=== PATIENT | female | born 1990 | race African-American/Black ===

== ENCOUNTER 2016-12-05 00:32 | Emergency (ER) | payer OTHER ==
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
[2016-12-05 01:18] VITALS: BP 135/83; PULSE 119; TEMP 97.9; BMI 41.8
[2016-12-05 01:31] LABS: BASOPHIL 0.2 % (0-2.0); EOSINOPHIL 1.9 % (0-4.5); MCH 29.3 pg (25.7-33.7); MCHC 33.3 g/dl (32.0-36.0); MEAN CELL VOLUME 87.9 fl (80-96); MEAN PLT VOLUME 11.5 fl (7.5-11.1); NEUTROPHILS 67.4 % (42.8-82.8); PLATELET COUNT 204 K/MM3 (134-434); RDW 13.9 % (11.6-15.6); WHITE BLOOD COUNT 7.9 K/mm3 (4.0-10.0)
[2016-12-05 01:36] LABS: URINE APPEARANCE CLEAR; URINE BILIRUBIN NEGATIVE (NEGATIVE); URINE BLOOD NEGATIVE (NEGATIVE); URINE COLOR YELLOW; URINE GLUCOSE (UA) NEGATIVE (NEGATIVE); URINE KETONE TRACE (NEGATIVE); URINE LEUK ESTERASE NEGATIVE (NEGATIVE); URINE NITRITE NEGATIVE (NEGATIVE); URINE UROBILINOGEN 2.0 E.U/dl E.U./dl (0.2-1.0)
[2016-12-05 01:38] LABS: URINE PROTEIN 3+ (NEGATIVE)
[2016-12-05 01:48] LABS: URINE BACTERIA RARE /hpf (NONE SEEN); URINE HYALINE CAST 1 /lpf; URINE MUCUS RARE; URINE RBC 2 /hpf (0-3); URINE WBC 4 /hpf (3-5)
[2016-12-05 02:22] LABS: ALBUMIN 3.6 g/dl (3.4-5.0); ANION GAP 10 (8-16); BILIRUBIN,TOTAL 0.1 mg/dL (0.2-1.0); CALCIUM 8.9 mg/dL (8.5-10.1); CO2 25 mmol/L (21-32); CREATININE 0.6 mg/dL (0.55-1.02); GLUCOSE,RANDOM 101 mg/dL (74-106); SGOT/AST 12 U/L (15-37); SGPT/ALT 22 U/L (12-78); TOT PROT 7.3 g/dl (6.4-8.2)
[2016-12-05 02:23] LABS: ALK PHOS 49 U/L (45-117)
== END 2016-12-05 02:52 | disposition home or self-care (01) ==
LOC: JER 00:32
DX: O99.89 Other specified diseases and conditions complicating pregnancy, childbirth and the puerperium (principal); Y04.2XXA Assault by strike against or bumped into by another person, initial encounter; Y93.89 Activity, other specified; Y92.89 Other specified places as the place of occurrence of the external cause; Y07.03 Male partner, perpetrator of maltreatment and neglect
CPT/HCPCS: 36415; 76801-TC; 80053; 81003; 81015; 84702; 85025; 86850; 86900; 86901; 99284-25

== ENCOUNTER 2017-01-07 15:04 | Emergency (ER) | payer OTHER ==
[2017-01-07 15:18] VITALS: BP 149/72; PULSE 80; TEMP 98.8; BMI 42.5
[2017-01-07] MEDS ORDERED: ALBUTEROL SO4 2.5/IPRATROPIUM 0.5 INH SOL 3 ML VIAL.NEB. NEB ONE (16:17)
--- NOTE | 2017-01-07 16:34 | PDOC ---
History of Present Illness - General Chief Complaint: Respiratory Stated Complaint: SOB Time Seen by Provider: 01/07/17 16:16 History Source: Patient Exam Limitations: No Limitations - History of Present Illness Initial Comments: 01/07/17 16:29 Patient 18 weeks with complaints of cold symptoms fevers, productive cough. 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 Has taken no medication as she was nervous to use any meds with the . has felt feverish but has taken no Tylenol. 01/07/17 18:21 Timing/Duration: reports: changing over time, getting worse Severity: reports: mild, moderate Associated Symptoms: reports: cough, nasal congestion, nasal drainage Past History - Travel Traveled outside of the country in the last 30 days: No Close contact w/someone who was outside of country & ill: No - Past Medical History Allergies/Adverse Reactions: Allergies Allergy/AdvReac Type Severity Reaction Status Date / Time No Known Drug Allergies Allergy Verified 01/07/17 15:18 Home Medications: Ambulatory Orders Pnv95/Iron Fum/Folic Acid [ Caplet] 1 each PO DAILY 05/22/16 Acetaminophen [Tylenol] 325 mg PO TID PRN #30 tablet MDD 4 12/08/16 Anemia: Yes Asthma: Yes Cancer: No Cardiac Disorders: No CVA: No COPD: No CHF: No Dementia: No Diabetes: Yes (pre-diabetes) GI Disorders: No Disorders: No HTN: No Hypercholesterolemia: No Liver Disease: No Psychiatric Problems: Yes (Depression) Seizures: No Thyroid Disease: No - Surgical History Abdominal Surgery: Yes (GASTRIC SLEEVE 2015) Appendectomy: No Cardiac Surgery: No Cholecystectomy: No Lung Surgery: No Neurologic Surgery: No Orthopedic Surgery: No - Reproductive History (#): 1 Para: 0 Therapeutic (s) & number: No - Immunization History Immunization Up to Date: Yes - Psycho/Social/Smoking Cessation Hx Anxiety: Yes Suicidal Ideation: No Smoking Status: No Smoking History: Never smoked Have you smoked in the past 12 months: No Number of Cigarettes Smoked Daily: 0 Hx Alcohol Use: No Drug/Substance Use Hx: No Substance Use Type: None Hx Substance Use Treatment: No Review of Systems - Review of Systems Able to Perform ROS?: Yes Is the patient limited Norwegian proficient: Yes Constitutional: Yes: Symptoms Reported, See HPI, Fever, Malaise HEENTM: Yes: Symptoms Reported, See HPI, Nose Congestion Respiratory: Yes: Symptoms reported, See HPI, Cough (moist ) Integumentary: Yes: Symptoms Reported Neurological: Yes: Symptoms reported, See HPI, Headache (frontal ) All Other Systems: Reviewed and Negative *Physical Exam - Vital Signs Last Vital Signs Temp Pulse Resp BP Pulse Ox 98.8 F 80 18 149/72 100 01/07/17 15:14 01/07/17 15:14 01/07/17 15:14 01/07/17 15:14 01/07/17 15:14 - Physical Exam General Appearance: Yes: Nourished, Appropriately Dressed, Apparent Distress, Mild Distress HEENT: positive: DREW, TMs Normal, Pharynx Normal Neck: positive: Supple. negative: Lymphadenopathy (R), Lymphadenopathy (L) Respiratory/Chest: positive: Normal Breath Sounds, Wheezing (faint expiratory wheezing noted in the upper lobes with a moist nonproductive cough). 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 some improvement with Neb but patient refuses meds as is and hopes to use conservative measures. *DC/Admit/Observation/Transfer Diagnosis at time of Disposition: Common cold virus - Discharge Dispostion Disposition: HOME Condition at time of disposition: Stable Admit: No - Referrals Referrals: Donnell Lou MD [Primary Care Provider] - - Patient Instructions Printed Discharge Instructions: DI for Common Cold Additional Instructions: Rest, drink lots of fluids: Teas, water, soups, Pedialyte Saltwater gargles Steamy showers/seem to face break up mucus Avoid contact with others until fevers and cough resolved Lots of handwashing and good hygiene Continue [id number] medications for symptomatic relief Tylenol for fever and pain Followup with private physician in one to 2 days as needed Return to emergency department for worsened symptoms, fevers, dehydration
== END 2017-01-07 17:51 | disposition home or self-care (01) ==
LOC: JERFT 15:04
DX: J06.9 Acute upper respiratory infection, unspecified (principal); B97.89 Other viral agents as the cause of diseases classified elsewhere
CPT/HCPCS: 87804; 99281-25

== ENCOUNTER → 2017-01-28 | Emergency (ER) | payer OTHER ==
[~2017-01-28] MED LIST: CEPHALEXIN MONOHYDRATE 500 MG CAPSULE (UD) ONE
[2017-01-28 04:23] VITALS: BMI 42.5
[2017-01-28 08:52] VITALS: BP 130/80; PULSE 98; TEMP 98.3
== END | disposition home or self-care (01) ==
LOC: JER 04:20
DX: O26.892 Other specified pregnancy related conditions, second trimester (principal); R10.30 Lower abdominal pain, unspecified; Z3A.21 21 weeks gestation of pregnancy
CPT/HCPCS: 76801-TC; 76817-TC; 99281-25

== ENCOUNTER 2017-02-10 11:18 | Emergency (ER) | payer OTHER ==
[2017-02-10 11:25] VITALS: BP 116/69; PULSE 114; TEMP 98.5; BMI 43.9
== END 2017-02-10 12:52 | disposition left against medical advice (07) ==
LOC: JERFT 11:18
DX: Z53.21 Procedure and treatment not carried out due to patient leaving prior to being seen by health care provider (principal)
CPT/HCPCS: 99281-25

== ENCOUNTER 2017-02-20 13:41 | Emergency (ER) | payer OTHER ==
[2017-02-20 13:51] VITALS: BP 142/76; PULSE 84; TEMP 97.9; BMI 43.0
[2017-02-20 15:00] LABS: URINE APPEARANCE CLEAR; URINE BILIRUBIN NEGATIVE (NEGATIVE); URINE BLOOD NEGATIVE (NEGATIVE); URINE COLOR DKYELLOW; URINE GLUCOSE (UA) NEGATIVE (NEGATIVE); URINE KETONE TRACE (NEGATIVE); URINE NITRITE NEGATIVE (NEGATIVE); URINE PROTEIN NEGATIVE (NEGATIVE); URINE UROBILINOGEN NEGATIVE E.U./dl (0.2-1.0)
[2017-02-20 15:01] LABS: URINE LEUK ESTERASE 2+ (NEGATIVE)
[2017-02-20 15:08] LABS: URINE BACTERIA RARE /hpf (NONE SEEN); URINE MUCUS MANY; URINE RBC 2 /hpf (0-3); URINE WBC 5 /hpf (3-5)
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
[2017-02-20] MEDS ORDERED: CEPHALEXIN MONOHYDRATE 500 MG CAPSULE (UD) PO ONE (15:46)
== END 2017-02-20 15:59 | disposition home or self-care (01) ==
LOC: JERFT 13:41
DX: N30.01 Acute cystitis with hematuria (principal)
CPT/HCPCS: 36415; 81003; 81015; 84703; 87086; 87491; 87591; 99281-25

== ENCOUNTER 2017-04-01 19:53 | Emergency (ER) | payer OTHER ==
[2017-04-01 20:14] VITALS: BP 137/76; PULSE 77; TEMP 99.2; BMI 42.5
--- NOTE | 2017-04-01 21:17 | PDOC ---
History of Present Illness - General Chief Complaint: Vaginal Sxs Stated Complaint: HEAD ACHE/ABDOMINAL PAIN Time Seen by Provider: 04/01/17 20:23 History Source: Patient Exam Limitations: No Limitations - History of Present Illness Travel History: No Initial Comments: 04/01/17 21:41 26-year-old female with a history of asthma and prediabetes presents to the emergency department complaining of 1)sore throat 8 hours; patient denies difficulty swallowing 2) mild diarrhea with BRBPR since yesterday but noticed his stool forming today 3) 2/10 frontal band-like nonradiating intermittent headache without photophobia /phonophobia, dizziness, lightheadedness LMP: 03/09/2017 : x6 months ago/ had a cerclage. She says her baby x1d after delivery Approximately one week after normal spontaneous vaginal delivery, patient had a UTI and was given Keflex 500 mg twice a day 7 days. Subsequently, she had a yeast infection and was treated by Diflucan. One week later, she was treated with amoxicillin 875 twice a day for right hand infection. 7 days ago, patient had BV and was treated with metronidazole. This patient presents today with multiple complaints. Patient denies any dizziness, lightheadedness, nausea/vomiting, fever/chills, jaw pain, neck pains, back pains, chest pain, shortness of breath, urinary symptoms: Frequency/urgency/hesitancy, hematuria, and pains, [place] numbness or tingling sensation. Timing/Duration: reports: intermittent Quality: reports: mild Past History - Past Medical History Allergies/Adverse Reactions: Allergies Allergy/AdvReac Type Severity Reaction Status Date / Time No Known Drug Allergies Allergy Verified 04/01/17 20:08 Home Medications: Ambulatory Orders Pnv95/Iron Fum/Folic Acid [ Caplet] 1 each PO DAILY 05/22/16 Acetaminophen [Tylenol] 325 mg PO TID PRN #30 tablet MDD 4 12/08/16 Cephalexin Monohydrate [Keflex -] 500 mg PO Q8H #21 capsule 02/20/17 Anemia: Yes Asthma: Yes Cancer: No Cardiac Disorders: No CVA: No COPD: No CHF: No Dementia: No Diabetes: Yes (pre-diabetes) GI Disorders: No Disorders: No HTN: No Hypercholesterolemia: No Liver Disease: No Psychiatric Problems: Yes (Depression) Seizures: No Thyroid Disease: No - Surgical History Abdominal Surgery: Yes (GASTRIC SLEEVE 2013) Appendectomy: No Cardiac Surgery: No Cholecystectomy: No Lung Surgery: No Neurologic Surgery: No Orthopedic Surgery: No - Reproductive History (#): 1 Para: 0 Therapeutic (s) & number: No - Immunization History Immunization Up to Date: Yes - Psycho/Social/Smoking Cessation Hx Anxiety: No Suicidal Ideation: No Smoking Status: No Smoking History: Never smoked Have you smoked in the past 12 months: No Number of Cigarettes Smoked Daily: 0 Information on smoking cessation initiated: No Hx Alcohol Use: No Drug/Substance Use Hx: No Substance Use Type: None Hx Substance Use Treatment: No Review of Systems - Review of Systems Able to Perform ROS?: Yes Comments:: 04/01/17 21:46 CONSTITUTIONAL: Absent: fever, chills, diaphoresis, generalized weakness, malaise, loss of appetite HEENT: Absent: rhinorrhea, nasal congestion, throat pain, throat swelling, difficulty swallowing, mouth swelling, ear pain, eye pain, visual Changes CARDIOVASCULAR: Absent: chest pain, loss of consciousness, palpitations, irregular heart rate, peripheral edema RESPIRATORY: Absent: cough, shortness of breath, dyspnea with exertion, orthopnea, wheezing, stridor, hemoptysis GASTROINTESTINAL: BRBPR "on wipe"/ epigastric discomfort Absent: abdominal pain, abdominal distension, nausea, vomiting, diarrhea, constipation, melena, hematochezia GENITOURINARY: Absent: dysuria, frequency, urgency, hesitancy, hematuria, flank pain, genital pain MUSCULOSKELETAL: Absent: myalgia, arthralgia, joint swelling SKIN: Absent: rash, itching, pallor HEMATOLOGIC/IMMUNOLOGIC: Absent: easy bleeding, easy bruising, lymphadenopathy, frequent infections ENDOCRINE: Absent: unexplained weight gain, unexplained weight loss, heat intolerance, cold intolerance NEUROLOGIC: +frontal adame Absent: focal weakness or paresthesias, dizziness, unsteady gait, seizure, mental status changes, bladder or bowel incontinence PSYCHIATRIC: Absent: anxiety, depression, suicidal or homicidal ideation, hallucinations. Is the patient limited Micronesian proficient: No *Physical Exam - Vital Signs Last Vital Signs Temp Pulse Resp BP Pulse Ox 99.2 F 77 16 137/76 100 04/01/17 20:09 04/01/17 20:09 04/01/17 20:09 04/01/17 20:09 04/01/17 20:09 - Physical Exam Comments: 04/01/17 21:46 GENERAL: Well developed, well nourished. Awake and alert. No acute distress. HEENT: exudate to b/l tonsils Normocephalic, atraumatic. PERRLA, EOMI. No conjunctival pallor. Sclera are non- icteric. Moist mucous membranes. NECK: Supple. Full ROM. No JVD. Carotid pulses 2+ and symmetric, without bruits. No thyromegaly. No lymphadenopathy. CARDIOVASCULAR: Regular rate and rhythm. No murmurs, rubs, or gallops. Distal pulses are 2+ and symmetric. PULMONARY: No evidence of respiratory distress. Lungs clear to auscultation bilaterally. No wheezing, rales or rhonchi. ABDOMINAL: Soft. Non-tender. Non-distended. No rebound or guarding. No organomegaly. Normoactive bowel sounds. MUSCULOSKELETAL Normal range of motion at all joints. No bony deformities or tenderness. No CVA tenderness. EXTREMITIES: No cyanosis. No clubbing. No edema. No calf tenderness. SKIN: Warm and dry. Normal capillary refill. No rashes. No jaundice. NEUROLOGICAL: Alert, awake, appropriate. Cranial nerves 2-12 intact. No deficits to light touch and temperature in face, upper extremities and lower extremities. No motor deficits in the in face, upper extremities and lower extremities. Normoreflexic in the upper and lower extremities. Normal speech. Toes are down- going bilaterally. Gait is normal without ataxia. PSYCHIATRIC: Cooperative. Good eye contact. Appropriate mood and affect. *DC/Admit/Observation/Transfer Diagnosis at time of Disposition: Sore throat, Acute hemorrhoid Diarrhea Qualifiers: Diarrhea type: unspecified type Qualified Code(s): R19.7 - Diarrhea, unspecified - Discharge Dispostion Disposition: HOME Condition at time of disposition: Stable Admit: No - Referrals Referrals: Joanne Yoo MD [Primary Care Provider] - Jaren Stahl DO [Staff Physician] - - Patient Instructions Printed Discharge Instructions: Sore Throat, Diarrhea, Hemorrhoids Additional Instructions: Follow up with your physician or the ones listed on your discharge. Return to the ER for severe/persistent/worsening symptoms
== END 2017-04-01 23:46 | disposition home or self-care (01) ==
LOC: JER 19:53
DX: J02.9 Acute pharyngitis, unspecified (principal); K64.9 Unspecified hemorrhoids
CPT/HCPCS: 87070; 87430; 99282-25

== ENCOUNTER 2017-09-25 11:32 | Emergency (ER) | payer OTHER ==
[2017-09-25 11:37] VITALS: BP 124/74; PULSE 83; TEMP 97.8; BMI 42.5
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
== END 2017-09-25 13:02 | disposition home or self-care (01) ==
LOC: JERFT 11:32
DX: S63.601A Unspecified sprain of right thumb, initial encounter (principal); Y04.0XXA Assault by unarmed brawl or fight, initial encounter; Y93.89 Activity, other specified; Y92.89 Other specified places as the place of occurrence of the external cause; Y99.8 Other external cause status; J45.909 Unspecified asthma, uncomplicated; R73.03 Prediabetes; F41.8 Other specified anxiety disorders; Z98.84 Bariatric surgery status
CPT/HCPCS: 73130-TC-RT; 99281-25

== ENCOUNTER 2017-11-22 04:04 | Emergency (ER) | payer OTHER ==
[2017-11-22 04:14] VITALS: BP 125/54; PULSE 75; TEMP 98.6; BMI 43.9
--- NOTE | 2017-11-22 04:23 | PDOC ---
History of Present Illness - General Chief Complaint: Pain Stated Complaint: ABD PAIN Time Seen by Provider: 11/22/17 04:18 - History of Present Illness Initial Comments: 11/22/17 04:37 Ms. Napoles is a 27 yo female w/ pmh of Asthma, Pre-diabetes, Gastric sleeve (2013 ), who present complaining of pain that woke her from sleep earlier this evening. She reports that the pain is midline in her upper abdominal region and that she has never felt pain like this before in her life. She has also had a lot of belching this evening and forced herself to throw up one time thinking it might help. She reports she has recently had increased reflux symptoms and that she is not compliant with her gastric sleeve diet regimen. Ms. Naoples had previously lost a significant amount of weight but has begun to gain it back within the last year. The patient denies chest pain, shortness of breath, headache and dizziness. Denies fever, chills, diarrhea and constipation. Denies dysuria, frequency, urgency and hematuria. Allergies: NKDA Past History - Past Medical History Allergies/Adverse Reactions: Allergies Allergy/AdvReac Type Severity Reaction Status Date / Time No Known Drug Allergies Allergy Verified 11/22/17 04:12 Home Medications: Ambulatory Orders NK [No Known Home Medication] 04/02/17 Anemia: Yes Asthma: Yes Cancer: No Cardiac Disorders: No CVA: No COPD: No CHF: No Dementia: No Diabetes: Yes (pre-diabetes) GI Disorders: No Disorders: No HTN: No Hypercholesterolemia: No Liver Disease: No Psychiatric Problems: Yes (Depression) Seizures: No Thyroid Disease: No - Surgical History Abdominal Surgery: Yes (GASTRIC SLEEVE 2013) Appendectomy: No Cardiac Surgery: No Cholecystectomy: No Lung Surgery: No Neurologic Surgery: No Orthopedic Surgery: No - Reproductive History (#): 1 Para: 0 Therapeutic (s) & number: No - Immunization History Immunization Up to Date: Yes - Suicide/Smoking/Psychosocial Hx Smoking Status: No Smoking History: Never smoked Have you smoked in the past 12 months: No Number of Cigarettes Smoked Daily: 0 Hx Alcohol Use: No Drug/Substance Use Hx: No Substance Use Type: None Hx Substance Use Treatment: No Review of Systems - Review of Systems Comments:: 11/22/17 04:43 GENERAL/CONSTITUTIONAL: No fever or chills. No weakness. HEAD, EYES, EARS, NOSE AND THROAT: No change in vision. No ear pain or discharge. No sore throat. CARDIOVASCULAR: No chest pain or shortness of breath RESPIRATORY: No cough, wheezing, or hemoptysis. GASTROINTESTINAL: +Midline abdominal pain with N/V as described. GENITOURINARY: No dysuria, frequency, or change in urination. MUSCULOSKELETAL: No joint or muscle swelling or pain. No neck or back pain. SKIN: No rash NEUROLOGIC: No headache, vertigo, loss of consciousness, or change in strength/ sensation. ENDOCRINE: No increased thirst. No abnormal weight change HEMATOLOGIC/LYMPHATIC: No anemia, easy bleeding, or history of blood clots. ALLERGIC/IMMUNOLOGIC: No hives or skin allergy. *Physical Exam - Vital Signs Last Vital Signs Temp Pulse Resp BP Pulse Ox 98.6 F 75 26 H 125/54 100 11/22/17 04:13 11/22/17 04:13 11/22/17 04:13 11/22/17 04:13 11/22/17 04:13 - Physical Exam Comments: 11/22/17 04:43 GENERAL: Awake, alert, and fully oriented, in no acute distress HEAD: No signs of trauma, normocephalic, atraumatic EYES: PERRLA, EOMI, sclera anicteric, conjunctiva clear ENT: Auricles normal inspection, hearing grossly normal, nares patent, oropharynx clear without exudates. Moist mucosa NECK: Normal ROM, supple, no lymphadenopathy, JVD, or masses LUNGS: No distress, speaks full sentences, clear to auscultation bilaterally HEART: Regular rate and rhythm, normal S1 and S2, no murmurs, rubs or gallops, peripheral pulses normal and equal bilaterally. ABDOMEN: +TTP in epigastric region. Soft, normoactive bowel sounds. No guarding , no rebound. No masses EXTREMITIES: Normal inspection, Normal range of motion, no edema. No clubbing or cyanosis. NEUROLOGICAL: Cranial nerves II through XII grossly intact. Normal speech, normal gait, no focal sensorimotor deficits SKIN: Warm, Dry, normal turgor, no rashes or lesions noted. ED Treatment Course - LABORATORY CBC & Chemistry Diagram: 11/22/17 05:00 11/22/17 05:00 Medical Decision Making - Medical Decision Making 11/22/17 05:12 Ms. Napoles is a 27 yo female w/ pmh as described who presents w/ symptoms consistent w/ reflux. Pepcid/zofran/1L NS given for symptomatic relief; basic labs sent to r/o infection/electrolyte abnormalities. 11/22/17 05:49 Patient reports relief from symptoms. 11/22/17 06:23 Lactate noted to be elevated at 2.3. 1L NS given. Labs otherwise grossly wnl as below. Discharging patient to home for outpatient follow-up. Patient agrees and will see PCP this week. Laboratory Results - last 24 hr 11/22/17 11/22/17 11/22/17 05:00 05:00 05:00 WBC 6.6 RBC 4.55 Hgb 12.9 Hct 39.8 MCV 87.4 MCH 28.5 MCHC 32.6 RDW 14.5 Plt Count 210 MPV 11.6 H Neutrophils % 61.3 Lymphocytes % 31.0 D Monocytes % 5.0 Eosinophils % 2.2 Basophils % 0.5 Sodium 141 Potassium 4.3 Chloride 106 Carbon Dioxide 28 Anion Gap 7 L BUN 10 Creatinine 0.8 Creat Clearance w eGFR > 60 Random Glucose 107 H Lactic Acid 2.3 H* Calcium 8.3 L Total Bilirubin 0.3 D AST 57 H ALT 37 Alkaline Phosphatase 83 Total Protein 8.2 Albumin 3.8 Lipase 144 Beta HCG, Quant < 1.0 *DC/Admit/Observation/Transfer Diagnosis at time of Disposition: Reflux gastritis - Discharge Dispostion Disposition: HOME - Referrals Referrals: Arnoldo Hdz MD [Primary Care Provider] - - Patient Instructions Printed Discharge Instructions: DI for Gastroesophageal Reflux Disease (GERD) Additional Instructions: Please return to ER if any further pain, fever, chills, or other concerning symptoms. Follow-up with primary care provider and gastric surgeon as discussed for further management of gastric sleeve and reflux. - Post Discharge Activity
[2017-11-22] MEDS ORDERED: SODIUM CHLORIDE 1,000 ML IV STA (04:44)
[2017-11-22] MEDS ORDERED: ONDANSETRON 4 MG/2 ML VIAL IVPUSH ONE (04:44)
[2017-11-22] MEDS ORDERED: FAMOTIDINE IV 20 MG/12 ML VIAL IVPB ONE (04:44)
[2017-11-22] MEDS ORDERED: ONDANSETRON 4 MG/2 ML VIAL ONE (04:54)
[2017-11-22] MEDS ORDERED: FAMOTIDINE 20 MG/50 ML IVPB 20 MG/50 ML MG IVPB ONE (05:10)
[2017-11-22 05:13] LABS: BASO % 0.5 % (0-2.0); EOS % 2.2 % (0-4.5); HEMATOCRIT 39.8 % (32.4-45.2); HEMOGLOBIN 12.9 GM/dL (10.7-15.3); MCH 28.5 pg (25.7-33.7); MCHC 32.6 g/dl (32.0-36.0); MEAN CELL VOLUME 87.4 fl (80-96); MEAN PLT VOLUME 11.6 fl (7.5-11.1); NEUT % 61.3 % (42.8-82.8); PLATELET COUNT 210 K/MM3 (134-434); RBC 4.55 M/mm3 (3.60-5.2); RDW 14.5 % (11.6-15.6); WHITE BLOOD COUNT 6.6 K/mm3 (4.0-10.0)
[2017-11-22 05:45] LABS: ALBUMIN 3.8 g/dl (3.4-5.0); ANION GAP 7 (8-16); BILIRUBIN,TOTAL 0.3 mg/dL (0.2-1.0); BLOOD UREA NITROGEN 10 mg/dL (7-18); CALCIUM 8.3 mg/dL (8.5-10.1); CHLORIDE 106 mmol/L (98-107); CO2 28 mmol/L (21-32); CREATININE 0.8 mg/dL (0.55-1.02); GLUCOSE,RANDOM 107 mg/dL (74-106); LIPASE 144 U/L (73-393); SGPT/ALT 37 U/L (12-78); SODIUM 141 mmol/L (136-145); TOT PROT 8.2 g/dl (6.4-8.2)
[2017-11-22 05:48] LABS: ALK PHOS 83 U/L (45-117)
[2017-11-22 05:57] LABS: POTASSIUM 4.3 mmol/L (3.5-5.1); SGOT/AST 57 U/L (15-37)
--- NOTE | 2017-11-22 06:32 | PDOC ---
Attending Attestation - Resident Resident Name: Mich Zamarripa - ED Attending Attestation I have performed the following: I have examined & evaluated the patient, The case was reviewed & discussed with the resident, I agree w/resident's findings & plan - HPI HPI: 11/22/17 06:59 Pt comes with epigastric pain. SHe has GERD and gastritis. - Physicial Exam PE: 11/22/17 07:00 Agree with resident exam - Medical Decision Making 11/22/17 07:00 Pt is stable for discharge.
== END 2017-11-22 07:07 | disposition home or self-care (01) ==
LOC: JER 04:04
PROC: 3E033GC Introduction of Other Therapeutic Substance into Peripheral Vein, Percutaneous Approach (ICD-10-PCS; principal; 2017-11-22)
PROC: 3E033GC Introduction of Other Therapeutic Substance into Peripheral Vein, Percutaneous Approach (ICD-10-PCS; 2017-11-22)
DX: K21.9 Gastro-esophageal reflux disease without esophagitis (principal); J45.909 Unspecified asthma, uncomplicated; R73.03 Prediabetes; F32.9 Major depressive disorder, single episode, unspecified
CPT/HCPCS: 36415; 80053; 83605; 83690; 84702; 85025; 96374; 96375; 99283-25

== ENCOUNTER 2022-02-11 06:49 | Emergency (ER) | payer OTHER ==
[2022-02-11 06:55] VITALS: BP 124/92; PULSE 77; TEMP 98.2; BMI 47.2
[2022-02-11] MEDS ORDERED: KETOROLAC TROMETHAMINE 30 MG/1 ML VIAL IM ONE (07:35)
[2022-02-11] MEDS ORDERED: CYCLOBENZAPRINE HCL 10 MG TABLET (FP) PO ONE (07:35)
== END 2022-02-11 08:35 | disposition home or self-care (01) ==
LOC: JER 06:49
PROC: 3E0233Z Introduction of Anti-inflammatory into Muscle, Percutaneous Approach (ICD-10-PCS; principal; 2022-02-11)
DX: M54.9 Dorsalgia, unspecified (principal); M54.2 Cervicalgia; S09.93XA Unspecified injury of face, initial encounter; Y07.03 Male partner, perpetrator of maltreatment and neglect
CPT/HCPCS: 99284-25